=== PATIENT | female | born 1970 | race Caucasian/White ===

== ENCOUNTER 2016-04-16 20:24 | Emergency (ER) | payer OTHER ==
[~2016-04-16] VITALS: Ht 167.6 cm; Wt 90.7 kg
[~2016-04-16 20:24] MED LIST: ACID CONTROL150 MG PO; ADVAIR 250/501 DISK IH; ADVAIR 500/501 DISK IH; ADVAIR HFA120 INHALA IH; ADVIL,NUPRIN,M200 MG PO; AFRIN,GENASAL D15 ML BOTH NARES; ALBUTEROL2.5 MG/3 M IH; ALLERGY10 M1 PO; AMITIZA8 MICROGRA PO; ANTIVERT25 MG PO; ATIVAN0.5 M1 GT; AYGESTIN5 MG PO; AZITHROMYCIN250 MG1 PO; B12 5,000 MCG1 EACH; BACLOFEN10 MG PO; BACTRIM,SEPT1 TABLET; BACTRIM,SEPT1 TABLET PO; BENADRYL25 MG PO; BENTYL20 MG PO; BENZONATATE200 MG PO; BUDEPRION XL150 MG PO; BUDEPRION XL300 MG; CARAFATE1 GM PO; CELEXA40 MG PO; CETIRIZINE HCL10 M2 PO; CIPRO500 MG PO; CITRATE OF MAG296 ML PO; CLONIDINE HCL0.1 MG PO; COLACE100 MG PO; DESYREL100 MG PO; DESYREL300 MG PO; DIAZEPAM5 MG VG; DICYCLOMINE HCL20 MG PO; DILAUDID2 MG PO; DILAUDID4 MG PO; DOCUSATE CALCI240 MG PO; DOLOPHINE HCL10 MG PO; DOXAZOSIN MESYLA8 MG PO; DOXYCYCLINE HYC50 MG PO; DURAGESIC100 MCG TD; DURAGESIC12 MCG TD; DURAGESIC25 MCG TD; ELMIRON100 MG PO; ERGOCALCIF50000 UNIT PO; ERYTHROMYCIN-23.6 GM TP; ESKALITH300 M1 PO; ESZOPICLONE3 MG PO; EXCEDRIN MIGRA1 EAC3 PO; EXTRA STRENGTH500 M1 PO; Effexor XR PO; FENTANYL1 EAC1 TD; FENTANYL1 EAC4 TD; FENTANYL1 EAC5 TD; FEOSOL325 MG PO; FIORICET 50-301 EACH PO; FIORICET,ESG1 TABLET PO; FLAGYL500 MG PO; FLONASE16 G1 BOTH NARES; FLORINEF ACETA0.1 MG PO; GABAPENTIN300 MG PO; GABAPENTIN400 MG PO; GAS-X ULTRA ST180 MG PO; GEODON80 MG PO; GLIMEPIRIDE1 MG PO; HYDROXYZINE HCL50 M1; HYDROXYZINE HCL50 MG PO; IBUPROFEN200 M1 PO; IBUPROFEN800 MG PO; KENALOG,ARISTOC80 GM TP; KLONOPIN0.5 M1 PO; LAMICTAL XR300 MG PO; LAMICTAL150 M1 PO; LAMICTAL25 MG PO; LAMOTRIGINE200 MG PO; LATUDA40 MG PO; LATUDA80 MG PO; LEVAQUIN500 MG PO; LEVAQUIN750 MG PO; LEVOFLOXACIN500 MG PO; LEVOFLOXACIN750 MG PO; LEVOTHROID50 MCG PO; LEVOTHYROXINE75 MCG PO; LINZESS145 MCG PO; LITHIUM CARBON300 MG PO; LORTAB 5-325 M1 EACH PO; LYRICA100 MG PO; LYRICA25 MG PO; MAALOX ADVANCE355 ML PO; MACRODANTIN100 MG PO; MAGNESIUM CITR100 MG PO; MEDROL DOSEPAK4 MG PO; MELATONIN10 M1 PO; MELATONIN3 MG PO; MELOXICAM7.5 MG PO; METAMUCIL CAPSU1 CAP PO; METFORMIN HCL500 M1 PO; METFORMIN HCL500 M4 PO; METRONIDAZOLE500 MG PO; MIRALAX17 GM PO; MOTRIN600 MG PO; MOTRIN800 MG PO; MUCUS RELIEF600 MG PO; MULTI-DAY VITA1 EACH PO; NAPROSYN500 MG PO; NAPROXEN500 MG PO; NORETHINDRONE AC5 MG PO; OMEGA 3-6-91200 MG PO; ONDANSETRON HCL8 MG PO; OXYBUTYNIN CHLOR5 M1 PO; PANTOPRAZOLE SO40 MG PO; PEN-VEE K,VEET500 MG PO; PERCOCET 5/31 TABLET PO; PERCOCET 7.51 TABLET PO; PHENTERMINE HCL30 MG PO; POLYETHYLENE GL17 GM PO; PRAVACHOL10 MG; PRAVACHOL10 MG PO; PRAVASTATIN SOD20 MG PO; PREMARIN0.3 MG PO; PRILOSEC40 MG PO; PROAIR HFA8.5 GM IH; PROTONIX40 MG PO; PYRIDIUM200 MG PO; RANITIDINE HCL150 MG PO; RESTORIL; ROBITUSSIN AC,T10 ML PO; ROXICODONE5 MG PO; SENNA8.6 M1 PO; SENOKOT,SENN1 TABLET PO; SOMA250 MG PO; SPIRIVA1 INHALATI IH; SUCRALFATE1 GM PO; Soma PO; TAMAZEPAM PO; TIZANIDINE HCL4 M1 PO; TIZANIDINE HCL4 MG PO; TOPAMAX100 MG PO; TOPAMAX25 MG PO; TORADOL10 MG PO; TRAMADOL HCL50 MG PO; TRAZODONE HCL150 MG PO; TRAZODONE HCL300 MG PO; TRIAMCINOLONE A15 GM TP; TYLENOL PM EX-1 EACH; TYLENOL WITH C1 EACH PO; ULTRAM50 MG PO; VALIUM5 MG PO; VENLAFAXINE H37.5 M2 PO; VENTOLIN HFA18 GM IH; VICODIN,LORT1 TABLET PO; VIIBRYD40 MG PO; VITAMIN D400 UNIT PO; WELLBUTRIN XL150 MG PO; ZANAFLEX2 M1 PO; ZANAFLEX2 MG PO; ZANAFLEX4 M1 PO; ZANTAC150 MG PO; ZANTAC75 M1 PO; ZITHROMAX Z-PA250 MG PO; ZOFRAN ODT4 MG PO; ZOFRAN4 MG PO; ZOFRAN8 MG PO; [UNRECOGNIZED DRUG - OTHER]; celeXA PO
[2016-04-16 20:49] LABS: HEMATOCRIT 38.1 % (36.0-46.0); MCH 31.8 PG (29.0-34.0); MCHC 34.4 G/DL (30.0-36.0); MCV 92.5 FL (83-99); MEAN PLAT.VOLUME 9.5 uM^3 (9.5-12.4); PLATELET COUNT 266 K/uL (156-360); RBC DIS.WIDTH-SD 42.7 % (39-53); RED BLOOD COUNT 4.12 M/uL (3.80-5.20); WHITE BLOOD COUNT 8.1 K/uL (4.1-10.2)
[2016-04-16 20:57] LABS: CHLORIDE 104 mEq/L (99-109); POTASSIUM 3.8 mEq/L (3.7-5.4); SODIUM 137 mEq/L (136-147)
[2016-04-16 20:58] LABS: ADD MIUA? YES; BILIRUBIN NEGATIVE; BLOOD NEGATIVE; COLOR YELLOW ((YELLOW)); GLUCOSE (STRIP) >=1000; KETONES NEGATIVE; LEUKOCYTES NEGATIVE; NITRITE NEGATIVE; PROTEIN (STRIP) NEGATIVE; UROBILINOGEN 0.2 MG/DL (0.2-1.0)
[2016-04-16 20:59] LABS: GLUCOSE 281 mg/dL (70-99)
[2016-04-16 21:00] LABS: ANION GAP 10 MEQ/L (2-14)
[2016-04-16 21:01] LABS: TOTAL BILIRUBIN 0.6 mg/dL (0.0-1.0)
[2016-04-16 21:02] LABS: ALKALINE PHOSPHATASE 80 IU/L (3-129)
[2016-04-16 21:03] LABS: GFR ESTIMATE (CALCULATED) > 59 mL/min/
[2016-04-16 21:04] LABS: UREA NITROGEN (BUN) 8 mg/dL (9-23)
[2016-04-16 21:11] LABS: QUANTITATIVE HCG < 4.0 MIU/ML
[2016-04-16 21:29] LABS: BACTERIA 2+; CASTS NONE SEEN /LPF; CRYSTALS NONE SEEN; EPITHELIAL CELLS 1+; MUCUS NONE SEEN; RED BLOOD CELLS 0-5 /HPF (0-5); UCUL ADDED? YES; WHITE BLOOD CELLS 15-20 /HPF (0-5)
[2016-04-16] MEDS ORDERED: MACROBID100 MG PO (22:22)
[2016-04-16 22:52] VITALS: BP 146/99
== END 2016-04-16 22:56 | disposition home or self-care (01) ==
LOC: EME 20:24
DX: N39.0 Urinary tract infection, site not specified (principal); R51 Headache; E11.9 Type 2 diabetes mellitus without complications; J44.9 Chronic obstructive pulmonary disease, unspecified; G89.29 Other chronic pain; Z79.891 Long term (current) use of opiate analgesic; F17.200 Nicotine dependence, unspecified, uncomplicated
CPT/HCPCS: 80053; 81003; 84702; 85027; 87077; 87086; 87186; 99281; 99284

== ENCOUNTER 2016-04-27 18:34 | Emergency (ER) | payer OTHER ==
[~2016-04-27] VITALS: Ht 167.6 cm; Wt 89.4 kg
[~2016-04-27 18:34] MED LIST changes: +MACROBID100 MG PO
[2016-04-27 19:09] LABS: HEMATOCRIT 38.8 % (36.0-46.0); MCH 31.1 PG (29.0-34.0); MCV 91.3 FL (83-99); MEAN PLAT.VOLUME 9.5 uM^3 (9.5-12.4); PLATELET COUNT 279 K/uL (156-360); RBC DIS.WIDTH-CV 13.2 % (11.8-14.6); RBC DIS.WIDTH-SD 42.7 % (39-53); RED BLOOD COUNT 4.25 M/uL (3.80-5.20); WHITE BLOOD COUNT 8.4 K/uL (4.1-10.2)
[2016-04-27 19:32] LABS: CHLORIDE 109 mEq/L (99-109); POTASSIUM 3.7 mEq/L (3.7-5.4); SODIUM 141 mEq/L (136-147)
[2016-04-27 19:34] LABS: GLUCOSE 193 mg/dL (70-99)
[2016-04-27 19:35] LABS: ANION GAP 10 MEQ/L (2-14)
[2016-04-27 19:36] LABS: TOTAL BILIRUBIN 0.3 mg/dL (0.0-1.0)
[2016-04-27 19:37] LABS: ALKALINE PHOSPHATASE 79 IU/L (3-129)
[2016-04-27 19:38] LABS: GFR ESTIMATE (CALCULATED) > 59 mL/min/
[2016-04-27 19:39] LABS: UREA NITROGEN (BUN) 9 mg/dL (9-23)
[2016-04-27 19:46] LABS: QUANTITATIVE HCG < 4.0 MIU/ML
[2016-04-27] MEDS ORDERED: DICYCLOMINE HCL20 MG PO (20:23)
[2016-04-27] MEDS ORDERED: AMITIZA8 MICROGRA PO (20:23)
[2016-04-27] MEDS ORDERED: VITAMIN B-1100 MG PO (20:25)
[2016-04-27] MEDS ORDERED: RANITIDINE HCL150 MG PO (20:25)
[2016-04-27 20:28] LABS: ADD MIUA? YES; BILIRUBIN NEGATIVE; BLOOD NEGATIVE; COLOR YELLOW ((YELLOW)); GLUCOSE (STRIP) 100; KETONES NEGATIVE; LEUKOCYTES SMALL; NITRITE NEGATIVE; PROTEIN (STRIP) NEGATIVE; SPECIFIC GRAVITY 1.021 (1.000-1.030); UROBILINOGEN 0.2 MG/DL (0.2-1.0)
[2016-04-27 20:58] LABS: AMORPHOUS PHOSPHATE CRYSTALS 4+; BACTERIA 1+ /HPF; CASTS NONE SEEN /LPF; CRYSTALS PRESENT; EPITHELIAL CELLS 2+ /HPF; MUCUS NONE SEEN /LPF; RED BLOOD CELLS NONE SEEN /HPF (0-5); UCUL ADDED? NO; WHITE BLOOD CELLS RARE /HPF (0-5)
[2016-04-27] MEDS ORDERED: FLAGYL500 MG PO (21:58)
[2016-04-27 22:13] VITALS: BP 145/82
== END 2016-04-27 22:13 | disposition home or self-care (01) ==
LOC: EME 18:34
PROVIDERS: Physician Assistant
DX: K52.9 Noninfective gastroenteritis and colitis, unspecified (principal); R10.32 Left lower quadrant pain; I10 Essential (primary) hypertension; E11.9 Type 2 diabetes mellitus without complications; J44.9 Chronic obstructive pulmonary disease, unspecified; M79.7 Fibromyalgia; K21.9 Gastro-esophageal reflux disease without esophagitis; E03.9 Hypothyroidism, unspecified; Z79.84 Long term (current) use of oral hypoglycemic drugs; F17.200 Nicotine dependence, unspecified, uncomplicated
CPT/HCPCS: 74177; 80053; 81003; 84702; 85027; 99281; 99284; J1885; J2270; J2405; J7030

== ENCOUNTER 2016-05-06 21:53 | Emergency (ER) | payer OTHER ==
[~2016-05-06] VITALS: Ht 167.6 cm; Wt 88.6 kg
[~2016-05-06 21:53] MED LIST changes: +VITAMIN B-1100 MG PO
[2016-05-06 22:58] LABS: HEMATOCRIT 41.6 % (36.0-46.0); MCH 30.6 PG (29.0-34.0); MCHC 33.7 G/DL (30.0-36.0); MCV 90.8 FL (83-99); MEAN PLAT.VOLUME 9.3 uM^3 (9.5-12.4); PLATELET COUNT 308 K/uL (156-360); RBC DIS.WIDTH-CV 13.1 % (11.8-14.6); RBC DIS.WIDTH-SD 42.7 % (39-53); RED BLOOD COUNT 4.58 M/uL (3.80-5.20); WHITE BLOOD COUNT 7.8 K/uL (4.1-10.2)
[2016-05-06 23:08] LABS: CHLORIDE 105 mEq/L (99-109); POTASSIUM 3.7 mEq/L (3.7-5.4); SODIUM 140 mEq/L (136-147)
[2016-05-06 23:10] LABS: GLUCOSE 146 mg/dL (70-99)
[2016-05-06 23:11] LABS: ANION GAP 13 MEQ/L (2-14)
[2016-05-06 23:12] LABS: TOTAL BILIRUBIN 0.5 mg/dL (0.0-1.0)
[2016-05-06 23:14] LABS: ALKALINE PHOSPHATASE 88 IU/L (3-129); GFR ESTIMATE (CALCULATED) > 59 mL/min/
[2016-05-06 23:15] LABS: UREA NITROGEN (BUN) 6 mg/dL (9-23)
[2016-05-06 23:26] LABS: QUANTITATIVE HCG < 4.0 MIU/ML
[2016-05-06 23:41] LABS: ADD MIUA? YES; BILIRUBIN NEGATIVE; BLOOD NEGATIVE; COLOR STRAW ((YELLOW)); GLUCOSE (STRIP) NEGATIVE; KETONES NEGATIVE; LEUKOCYTES TRACE; NITRITE NEGATIVE; PROTEIN (STRIP) NEGATIVE; SPECIFIC GRAVITY 1.006 (1.000-1.030); UROBILINOGEN 0.2 MG/DL (0.2-1.0)
[2016-05-06 23:50] LABS: BACTERIA RARE /HPF; EPITHELIAL CELLS 1+ /HPF; MUCUS NONE SEEN /LPF; RED BLOOD CELLS 0-5 /HPF (0-5); UCUL ADDED? NO; WHITE BLOOD CELLS 0-5 /HPF (0-5)
[2016-05-07] MEDS ORDERED: ZOFRAN4 MG PO (04:41)
[2016-05-07 05:43] VITALS: BP 147/92
== END 2016-05-07 05:44 | disposition home or self-care (01) ==
LOC: EME 21:53
DX: R10.32 Left lower quadrant pain (principal); R11.0 Nausea; R10.813 Right lower quadrant abdominal tenderness; R10.814 Left lower quadrant abdominal tenderness; G89.29 Other chronic pain; R79.89 Other specified abnormal findings of blood chemistry; E11.9 Type 2 diabetes mellitus without complications; E03.9 Hypothyroidism, unspecified; J44.9 Chronic obstructive pulmonary disease, unspecified; F17.200 Nicotine dependence, unspecified, uncomplicated
CPT/HCPCS: 74177; 80053; 81003; 84702; 85027; 87040; 99281; 99285; J1200; J2270; J2405; J7030

== ENCOUNTER 2016-05-16 06:32 | Day surgery (SDC) | payer OTHER ==
[~2016-05-16] VITALS: Ht 167.6 cm; Wt 89.0 kg
[~2016-05-16 06:32] MED LIST changes: +LUNESTA3 MG PO; +LYRICA150 MG PO; +MINIPRESS1 MG PO
[2016-05-16 07:12] VITALS: BP 93/55
[2016-05-16 07:53] LABS: POINT-OF-CARE METER ID UU14174212
[2016-05-16 09:50] VITALS: BP 100/60
[2016-05-16 10:33] VITALS: BP 106/66
== END 2016-05-16 10:36 | disposition home or self-care (01) ==
LOC: SDC 06:32
PROVIDERS: Obstetrics & Gynecology Gynecology
PROC: 0U5MXZZ Destruction of Vulva, External Approach (ICD-10-PCS; principal; 2016-05-16)
DX: A63.0 Anogenital (venereal) warts (principal); E11.9 Type 2 diabetes mellitus without complications; K21.9 Gastro-esophageal reflux disease without esophagitis; J44.9 Chronic obstructive pulmonary disease, unspecified; E03.9 Hypothyroidism, unspecified; M79.7 Fibromyalgia; M54.16 Radiculopathy, lumbar region
CPT/HCPCS: 82948; 88305; 93005; J0131; J0690; J1100; J1885; J2250; J2405; J3010

== ENCOUNTER 2016-05-31 15:26 | Emergency (ER) | payer OTHER ==
[~2016-05-31] VITALS: Ht 167.6 cm; Wt 87.4 kg
[2016-05-31 17:30] LABS: EOSINOPHIL (%) 0.7 % (0-5); EOSINOPHIL COUNT 0.1 K/uL (0-0.3); HEMATOCRIT 37.8 % (36.0-46.0); IMMATURE GRANULOCYTE (%) 0.4 % (0.0-0.7); LYMPHOCYTE COUNT 2.6 K/uL (1.0-2.8); MCH 30.7 PG (29.0-34.0); MCHC 33.6 G/DL (30.0-36.0); MCV 91.3 FL (83-99); MEAN PLAT.VOLUME 9.2 uM^3 (9.5-12.4); MONOCYTE (%) 6.2 % (3-12); MONOCYTE COUNT 0.5 K/uL (0-0.8); NEUTROPHIL (%) 60.8 % (45-76); PLATELET COUNT 239 K/uL (156-360); RBC DIS.WIDTH-CV 13.2 % (11.8-14.6); RBC DIS.WIDTH-SD 44.2 % (39-53); RED BLOOD COUNT 4.14 M/uL (3.80-5.20); WHITE BLOOD COUNT 8.2 K/uL (4.1-10.2)
[2016-05-31 17:43] LABS: CHLORIDE 109 mEq/L (99-109); SODIUM 140 mEq/L (136-147)
[2016-05-31 17:46] LABS: GLUCOSE 119 mg/dL (70-99)
[2016-05-31 17:47] LABS: ADD MIUA? YES; BILIRUBIN NEGATIVE; BLOOD NEGATIVE; COLOR YELLOW ((YELLOW)); GLUCOSE (STRIP) NEGATIVE; KETONES NEGATIVE; LEUKOCYTES NEGATIVE; NITRITE NEGATIVE; PROTEIN (STRIP) NEGATIVE; UROBILINOGEN 0.2 MG/DL (0.2-1.0)
[2016-05-31 17:47] LABS: ANION GAP 11 MEQ/L (2-14); TOTAL BILIRUBIN 0.7 mg/dL (0.0-1.0)
[2016-05-31 17:49] LABS: ALKALINE PHOSPHATASE 67 IU/L (3-129); GFR ESTIMATE (CALCULATED) > 59 mL/min/
[2016-05-31 17:50] LABS: UREA NITROGEN (BUN) 9 mg/dL (9-23)
[2016-05-31 17:53] LABS: LIPASE 27 U/L (1.0-51.0)
[2016-05-31 17:53] LABS: BACTERIA RARE /HPF; EPITHELIAL CELLS 1+ /HPF; MUCUS TRACE /LPF; RED BLOOD CELLS 0-5 /HPF (0-5); WHITE BLOOD CELLS 0-5 /HPF (0-5)
[2016-05-31 17:59] LABS: QUANTITATIVE HCG < 4.0 MIU/ML
[2016-05-31 18:01] LABS: SAMPLE HEMOLYSIS CHECK 0; SAMPLE ICTERIC CHECK 0; SAMPLE LIPEMIA CHECK 0
[2016-05-31] MEDS ORDERED: ZOFRAN ODT4 MG PO (19:04)
[2016-05-31 19:14] VITALS: BP 142/87
== END 2016-05-31 19:14 | disposition home or self-care (01) ==
LOC: EME 15:26
PROVIDERS: Physician Assistant
DX: R10.32 Left lower quadrant pain (principal); G89.29 Other chronic pain; R11.0 Nausea; E11.9 Type 2 diabetes mellitus without complications; K21.9 Gastro-esophageal reflux disease without esophagitis; E03.9 Hypothyroidism, unspecified; Z79.84 Long term (current) use of oral hypoglycemic drugs; F17.200 Nicotine dependence, unspecified, uncomplicated
CPT/HCPCS: 74177; 80053; 81003; 83605; 83690; 84702; 85025; 86141; 99281; 99285; J1885; J2405; J7030

== ENCOUNTER → 2016-06-03 | Outpatient (CLI) | payer OTHER ==
[~2016-06-03] VITALS: Ht 167.6 cm; Wt 88.6 kg
[2016-06-03 08:28] LABS: POINT-OF-CARE METER ID UU13113694
[2016-06-03 09:36] LABS: POINT-OF-CARE METER ID UU13113819
== END | disposition home or self-care (01) ==
LOC: AMB 07:47
PROVIDERS: Internal Medicine
PROC: 0DBN8ZX Excision of Sigmoid Colon, Via Natural or Artificial Opening Endoscopic, Diagnostic (ICD-10-PCS; principal; 2016-06-03)
DX: R10.32 Left lower quadrant pain (principal); K59.00 Constipation, unspecified; K57.90 Diverticulosis of intestine, part unspecified, without perforation or abscess without bleeding; D12.5 Benign neoplasm of sigmoid colon; R11.0 Nausea; E11.9 Type 2 diabetes mellitus without complications; J44.9 Chronic obstructive pulmonary disease, unspecified; F17.200 Nicotine dependence, unspecified, uncomplicated; M79.7 Fibromyalgia; Z88.8 Allergy status to other drugs, medicaments and biological substances
CPT/HCPCS: 82948; 88305; J2250; J2405; J3010

== ENCOUNTER 2016-07-11 08:15 | Observation (INO) | payer OTHER ==
[~2016-07-11] VITALS: Ht 167.6 cm; Wt 89.3 kg
[2016-07-11 08:55] LABS: HEMATOCRIT 37.2 % (36.0-46.0); MCH 30.8 PG (29.0-34.0); MCHC 33.6 G/DL (30.0-36.0); MCV 91.6 FL (83-99); MEAN PLAT.VOLUME 9.3 uM^3 (9.5-12.4); PLATELET COUNT 240 K/uL (156-360); RBC DIS.WIDTH-CV 13.5 % (11.8-14.6); RBC DIS.WIDTH-SD 45.6 % (39-53); RED BLOOD COUNT 4.06 M/uL (3.80-5.20); WHITE BLOOD COUNT 7.2 K/uL (4.1-10.2)
[2016-07-11 09:03] LABS: CHLORIDE 105 mEq/L (99-109); SODIUM 136 mEq/L (136-147)
[2016-07-11 09:05] LABS: GLUCOSE 138 mg/dL (70-99)
[2016-07-11 09:07] LABS: ANION GAP 12 MEQ/L (2-14); TOTAL BILIRUBIN 0.3 mg/dL (0.0-1.0)
[2016-07-11 09:09] LABS: ALKALINE PHOSPHATASE 67 IU/L (3-129); GFR ESTIMATE (CALCULATED) > 59 mL/min/
[2016-07-11 09:10] LABS: UREA NITROGEN (BUN) 11 mg/dL (9-23)
[2016-07-11 09:12] LABS: LIPASE 28 U/L (1.0-51.0)
[2016-07-11 09:21] LABS: ADD MIUA? YES; BILIRUBIN NEGATIVE; BLOOD NEGATIVE; COLOR STRAW ((YELLOW)); GLUCOSE (STRIP) NEGATIVE; KETONES NEGATIVE; LEUKOCYTES TRACE; NITRITE NEGATIVE; PROTEIN (STRIP) NEGATIVE; SPECIFIC GRAVITY 1.006 (1.000-1.030); UROBILINOGEN 0.2 MG/DL (0.2-1.0)
[2016-07-11 09:29] LABS: BACTERIA NONE SEEN /HPF; EPITHELIAL CELLS 1+ /HPF; MUCUS TRACE /LPF; RED BLOOD CELLS 0-5 /HPF (0-5); WHITE BLOOD CELLS 0-5 /HPF (0-5)
[2016-07-11] MEDS ORDERED: GLIMEPIRIDE2 MG PO (14:40)
[2016-07-11] MEDS ORDERED: HYOSCYAMINE0.125 M2 PO (14:43)
[2016-07-11] MEDS ORDERED: ADVAIR HFA120 INHALA IH (14:43)
[2016-07-11 16:36] LABS: POINT-OF-CARE METER ID UU14100415
[2016-07-11 16:51] VITALS: BP 151/93
[2016-07-11 19:00] VITALS: BP 114/66
[2016-07-11 23:52] VITALS: BP 146/66
[2016-07-12 04:14] VITALS: BP 96/64
[2016-07-12 08:10] VITALS: BP 109/60
[2016-07-12 08:24] LABS: POINT-OF-CARE METER ID UU13113831
[2016-07-12 11:53] VITALS: BP 130/79
[2016-07-12 12:35] LABS: POINT-OF-CARE METER ID UU13113700
== END 2016-07-12 14:04 | disposition home or self-care (01) ==
LOC: EME 08:15 → EDOF 13:08 → 5WEST 13:08
PROVIDERS: Hospitalist; Nurse Practitioner Family
DX: R10.32 Left lower quadrant pain (principal); K21.9 Gastro-esophageal reflux disease without esophagitis; G89.29 Other chronic pain; M54.2 Cervicalgia; E11.9 Type 2 diabetes mellitus without complications; E03.9 Hypothyroidism, unspecified; M79.7 Fibromyalgia; E66.9 Obesity, unspecified; Z68.31 Body mass index [BMI] 31.0-31.9, adult; K59.00 Constipation, unspecified
CPT/HCPCS: 74000; 74177; 80053; 81003; 82948; 83605; 83690; 85027; 87040; 94640; 99202; 99281; 99284; G0378; J2405; J3010; J7030

== ENCOUNTER 2016-10-27 15:30 | Emergency (ER) | payer OTHER ==
[~2016-10-27] VITALS: Ht 167.6 cm; Wt 86.6 kg
[~2016-10-27 15:30] MED LIST changes: +GLIMEPIRIDE2 MG PO; +HYOSCYAMINE0.125 M2 PO
[2016-10-27 15:59] LABS: HEMATOCRIT 36.7 % (36.0-46.0); MCH 29.9 PG (29.0-34.0); MCHC 34.1 G/DL (30.0-36.0); MCV 87.8 FL (83-99); MEAN PLAT.VOLUME 9.1 uM^3 (9.5-12.4); PLATELET COUNT 277 K/uL (156-360); RBC DIS.WIDTH-CV 13.4 % (11.8-14.6); RBC DIS.WIDTH-SD 43.1 % (39-53); RED BLOOD COUNT 4.18 M/uL (3.80-5.20)
[2016-10-27 16:07] LABS: CHLORIDE 94 mEq/L (99-109); POTASSIUM 3.3 mEq/L (3.7-5.4); SODIUM 134 mEq/L (136-147)
[2016-10-27 16:09] LABS: GLUCOSE 149 mg/dL (70-99)
[2016-10-27 16:10] LABS: ANION GAP 13 MEQ/L (2-14)
[2016-10-27 16:11] LABS: TOTAL BILIRUBIN 0.5 mg/dL (0.0-1.0)
[2016-10-27 16:12] LABS: ALKALINE PHOSPHATASE 102 IU/L (3-129)
[2016-10-27 16:13] LABS: GFR ESTIMATE (CALCULATED) 57 mL/min/
[2016-10-27 16:14] LABS: UREA NITROGEN (BUN) 10 mg/dL (9-23)
[2016-10-27 16:21] LABS: QUANTITATIVE HCG < 4.0 MIU/ML
[2016-10-27 17:14] LABS: COLOR YELLOW ((YELLOW)); LEUKOCYTES SMALL
[2016-10-27 17:15] LABS: ADD MIUA? YES; BILIRUBIN NEGATIVE; BLOOD NEGATIVE; GLUCOSE (STRIP) NEGATIVE; KETONES NEGATIVE; NITRITE POSITIVE; PROTEIN (STRIP) TRACE; UROBILINOGEN 0.2 MG/DL (0.2-1.0)
[2016-10-27 17:24] LABS: RED BLOOD CELLS 0-5 /HPF (0-5)
[2016-10-27 17:25] LABS: BACTERIA 3+ /HPF; EPITHELIAL CELLS 3+ /HPF; MUCUS RARE /LPF; UCUL ADDED? YES
[2016-10-27] MEDS ORDERED: BACTRIM,SEPT1 TABLET PO (17:40)
[2016-10-27 18:56] VITALS: BP 138/70
== END 2016-10-27 18:57 | disposition home or self-care (01) ==
LOC: EME 15:30
DX: N39.0 Urinary tract infection, site not specified (principal); E11.9 Type 2 diabetes mellitus without complications; M79.7 Fibromyalgia; K21.9 Gastro-esophageal reflux disease without esophagitis; E03.9 Hypothyroidism, unspecified; K58.9 Irritable bowel syndrome, unspecified; Z87.440 Personal history of urinary (tract) infections; Z87.891 Personal history of nicotine dependence; Z79.84 Long term (current) use of oral hypoglycemic drugs
CPT/HCPCS: 80053; 81003; 84702; 85027; 87077; 87086; 87186; 99281; 99284

== ENCOUNTER 2017-05-05 01:48 | Emergency (ER) | payer OTHER ==
[~2017-05-05] VITALS: Ht 167.6 cm; Wt 85.2 kg
[2017-05-05 02:23] LABS: HEMATOCRIT 36.9 % (36.0-46.0); HEMOGLOBIN 12.4 G/DL (11.9-15.5); MCH 30.3 PG (29.0-34.0); MCHC 33.6 G/DL (30.0-36.0); MCV 90.2 FL (83-99); PLATELET COUNT 376 K/uL (156-360); RBC DIS.WIDTH-CV 13.8 % (11.8-14.6); RBC DIS.WIDTH-SD 45.5 % (39-53); RED BLOOD COUNT 4.09 M/uL (3.80-5.20); WHITE BLOOD COUNT 11.1 K/uL (4.1-10.2)
[2017-05-05 02:32] LABS: APPEARANCE SL.HAZY ((CLEAR)); BILIRUBIN NEGATIVE; BLOOD NEGATIVE; COLOR YELLOW ((YELLOW)); GLUCOSE (STRIP) 50; KETONES NEGATIVE; LEUKOCYTES SMALL; NITRITE NEGATIVE; PROTEIN (STRIP) 30; SPECIFIC GRAVITY 1.011 (1.000-1.030); UROBILINOGEN 0.2 MG/DL (0.2-1.0)
[2017-05-05 02:34] LABS: ALBUMIN 4.2 g/dL (3.2-4.8)
[2017-05-05 02:35] LABS: CHLORIDE 100 mEq/L (99-109); SODIUM 139 mEq/L (136-147)
[2017-05-05 02:37] LABS: GLUCOSE 179 mg/dL (70-99); TOTAL PROTEIN 8.4 g/dL (6.4-8.3)
[2017-05-05 02:38] LABS: BACTERIA 2+ /HPF; EPITHELIAL CELLS 2+ /HPF; MUCUS TRACE /LPF; RED BLOOD CELLS 0-5 /HPF (0-5); UCUL ADDED? YES; WHITE BLOOD CELLS 0-5 /HPF (0-5)
[2017-05-05 02:39] LABS: TOTAL BILIRUBIN 0.8 mg/dL (0.0-1.0)
[2017-05-05 02:41] LABS: ALKALINE PHOSPHATASE 78 IU/L (3-129); CREATININE 0.9 mg/dL (0.6-1.3); GFR ESTIMATE (CALCULATED) > 59 mL/min/
[2017-05-05 02:42] LABS: AST (GOT) 27 IU/L (2-34); UREA NITROGEN (BUN) 7 mg/dL (9-23)
[2017-05-05 02:44] LABS: ALT (GPT) 14 IU/L (3-49); LIPASE 13 U/L (1.0-51.0)
[2017-05-05 02:50] LABS: QUANTITATIVE HCG < 4.0 MIU/ML
[2017-05-05] MEDS ORDERED: REGLAN10 MG PO (05:06)
[2017-05-05 05:35] VITALS: BP 143/90
== END 2017-05-05 05:36 | disposition home or self-care (01) ==
LOC: EME 01:48
DX: K91.872 Postprocedural seroma of a digestive system organ or structure following a digestive system procedure (principal); R11.2 Nausea with vomiting, unspecified; K21.9 Gastro-esophageal reflux disease without esophagitis; E11.9 Type 2 diabetes mellitus without complications; E03.9 Hypothyroidism, unspecified; K58.9 Irritable bowel syndrome, unspecified; G89.29 Other chronic pain; Z79.84 Long term (current) use of oral hypoglycemic drugs; Z87.891 Personal history of nicotine dependence; Z98.890 Other specified postprocedural states; Z87.19 Personal history of other diseases of the digestive system; Z90.49 Acquired absence of other specified parts of digestive tract; Z90.711 Acquired absence of uterus with remaining cervical stump; Z88.6 Allergy status to analgesic agent; Z88.8 Allergy status to other drugs, medicaments and biological substances
CPT/HCPCS: 74177; 80053; 81003; 83690; 84702; 85027; 87086; 99281; 99285; J1200; J2270; J2405; J2765; J3010; J7030

== ENCOUNTER 2017-05-12 18:05 | Observation (INO) | payer OTHER ==
[~2017-05-12] VITALS: Ht 167.6 cm; Wt 81.8 kg
[~2017-05-12 18:05] MED LIST changes: +REGLAN10 MG PO
[2017-05-12 19:44] LABS: HEMATOCRIT 37.2 % (36.0-46.0); HEMOGLOBIN 12.5 G/DL (11.9-15.5); MCH 30.3 PG (29.0-34.0); MCHC 33.6 G/DL (30.0-36.0); MCV 90.1 FL (83-99); PLATELET COUNT 342 K/uL (156-360); RBC DIS.WIDTH-CV 13.8 % (11.8-14.6); RBC DIS.WIDTH-SD 45.7 % (39-53); RED BLOOD COUNT 4.13 M/uL (3.80-5.20); WHITE BLOOD COUNT 8.4 K/uL (4.1-10.2)
[2017-05-12 19:56] LABS: ALBUMIN 4.3 G/DL (3.2-4.8); CHLORIDE 102 MEQ/L (99-109); POTASSIUM 4.2 MEQ/L (3.7-5.4); SODIUM 138 MEQ/L (136-147); TOTAL BILIRUBIN 0.6 MG/DL (0.0-1.0)
[2017-05-12 20:02] LABS: ALKALINE PHOSPHATASE 67 IU/L (3-129); ALT (GPT) 18 IU/L (3-49); AST (GOT) 40 IU/L (2-34); CREATININE 0.8 MG/DL (0.6-1.3); GFR ESTIMATE (CALCULATED) > 59 mL/min/; GLUCOSE 209 mg/dL (70-99); LIPASE 15 U/L (1.0-51.0); TOTAL PROTEIN 8.2 G/DL (6.4-8.3); UREA NITROGEN (BUN) 8 mg/dL (9-23)
[2017-05-12 20:04] LABS: QUANTITATIVE HCG < 4.0 MIU/ML
[2017-05-12] MEDS ORDERED: PHENERGAN25 MG PR (21:37)
[2017-05-13 01:17] LABS: SERUM ETHYL ALCOHOL < 10 mg/dL
[2017-05-13 01:50] VITALS: BP 162/76
[2017-05-13 09:57] VITALS: BP 125/79
[2017-05-13] MEDS ORDERED: MINIPRESS2 MG PO (10:31)
[2017-05-13] MEDS ORDERED: MINIPRESS5 MG PO (10:31)
[2017-05-13] MEDS ORDERED: LAMICTAL200 MG PO (10:31)
[2017-05-13] MEDS ORDERED: BUSPAR30 MG PO (10:31)
[2017-05-13] MEDS ORDERED: SYNTHROID75 MCG PO (10:32)
[2017-05-13] MEDS ORDERED: LUNESTA3 MG PO (10:32)
[2017-05-13] MEDS ORDERED: LATUDA60 MG PO (10:32)
[2017-05-13] MEDS ORDERED: PROVENTIL,2.5 MG/3 M IH (10:32)
[2017-05-13] MEDS ORDERED: [UNRECOGNIZED DRUG - OTHER] TP (10:33)
[2017-05-13] MEDS ORDERED: DITROPAN XL5 MG PO (10:33)
[2017-05-13] MEDS ORDERED: ZOFRAN ODT4 MG PO (10:33)
[2017-05-13] MEDS ORDERED: TIZANIDINE HCL4 MG PO (10:33)
[2017-05-13] MEDS ORDERED: BACLOFEN10 MG PO (10:33)
[2017-05-13] MEDS ORDERED: LOPROX 0.77% TP (10:33)
[2017-05-13] MEDS ORDERED: METFORMIN HCL500 M1 PO (10:34)
[2017-05-13] MEDS ORDERED: ZYRTEC10 M3 PO (10:34)
[2017-05-13] MEDS ORDERED: BUTRANS1 EAC1 TD (10:34)
[2017-05-13] MEDS ORDERED: VENTOLIN HFA18 GM IH (10:34)
[2017-05-13] MEDS ORDERED: NEXIUM 24HR20 M1 PO (10:34)
[2017-05-13] MEDS ORDERED: KENALOG,ARISTOC15 G1 TP (10:35)
[2017-05-13] MEDS ORDERED: AMARYL2 MG PO (10:35)
[2017-05-13 11:45] VITALS: BP 144/85
[2017-05-13 12:57] VITALS: BP 144/95
[2017-05-13] MEDS ORDERED: BENTYL10 MG PO (16:58)
== END 2017-05-13 18:19 | disposition home or self-care (01) ==
LOC: EME 18:05 → EDOF 05-13 00:13 → ENRESERV 05-13 00:17 → 5WEST 05-13 01:51
PROVIDERS: Hospitalist; Physician Assistant
DX: R11.2 Nausea with vomiting, unspecified (principal); G89.29 Other chronic pain; R10.32 Left lower quadrant pain; Z98.890 Other specified postprocedural states; F60.3 Borderline personality disorder; M79.7 Fibromyalgia; J44.9 Chronic obstructive pulmonary disease, unspecified; Z87.891 Personal history of nicotine dependence; Z86.010 Personal history of colon polyps; E11.65 Type 2 diabetes mellitus with hyperglycemia; E03.9 Hypothyroidism, unspecified; I10 Essential (primary) hypertension; E78.5 Hyperlipidemia, unspecified; K58.9 Irritable bowel syndrome, unspecified; G47.33 Obstructive sleep apnea (adult) (pediatric); Z90.49 Acquired absence of other specified parts of digestive tract; Z87.19 Personal history of other diseases of the digestive system; Z90.710 Acquired absence of both cervix and uterus; Z88.1 Allergy status to other antibiotic agents; Z88.8 Allergy status to other drugs, medicaments and biological substances; E66.01 Morbid (severe) obesity due to excess calories; Z68.29 Body mass index [BMI] 29.0-29.9, adult; Z79.84 Long term (current) use of oral hypoglycemic drugs
CPT/HCPCS: 74018; 74176; 80053; 80306 90; 81003; 82948; 83605; 83690; 84702; 85027; 99281; 99285; C9113; G0378; G0480; J1630; J1644; J1885; J2060; J2405; J2765; J3010; J7030

== ENCOUNTER 2017-05-14 23:01 | Inpatient (IN) | payer OTHER ==
[~2017-05-14] VITALS: Ht 167.6 cm; Wt 82.6 kg
[~2017-05-14 23:01] MED LIST changes: +AMARYL2 MG PO; +BENTYL10 MG PO; +BUSPAR30 MG PO; +BUTRANS1 EAC1 TD; +DITROPAN XL5 MG PO; +KENALOG,ARISTOC15 G1 TP; +LAMICTAL200 MG PO; +LATUDA60 MG PO; +LOPROX 0.77% TP; +MINIPRESS2 MG PO; +MINIPRESS5 MG PO; +NEXIUM 24HR20 M1 PO; +PHENERGAN25 MG PR; +PROVENTIL,2.5 MG/3 M IH; +SYNTHROID75 MCG PO; +ZYRTEC10 M3 PO; +[UNRECOGNIZED DRUG - OTHER] TP
[2017-05-14 23:28] LABS: HEMATOCRIT 36.8 % (36.0-46.0); HEMOGLOBIN 12.3 G/DL (11.9-15.5); MCH 30.2 PG (29.0-34.0); MCHC 33.4 G/DL (30.0-36.0); MCV 90.4 FL (83-99); PLATELET COUNT 381 K/uL (156-360); RBC DIS.WIDTH-CV 13.6 % (11.8-14.6); RBC DIS.WIDTH-SD 45.1 % (39-53); RED BLOOD COUNT 4.07 M/uL (3.80-5.20); WHITE BLOOD COUNT 8.8 K/uL (4.1-10.2)
[2017-05-14 23:42] LABS: ALBUMIN 4.5 g/dL (3.2-4.8); CHLORIDE 101 mEq/L (99-109); POTASSIUM 3.5 mEq/L (3.7-5.4); SODIUM 137 mEq/L (136-147)
[2017-05-14 23:45] LABS: GLUCOSE 195 mg/dL (70-99); TOTAL PROTEIN 8.4 g/dL (6.4-8.3)
[2017-05-14 23:48] LABS: ALKALINE PHOSPHATASE 79 IU/L (3-129); CREATININE 0.8 mg/dL (0.6-1.3); GFR ESTIMATE (CALCULATED) > 59 mL/min/
[2017-05-14 23:49] LABS: UREA NITROGEN (BUN) 9 mg/dL (9-23)
[2017-05-14 23:50] LABS: AST (GOT) 68 IU/L (2-34)
[2017-05-14 23:51] LABS: ALT (GPT) 30 IU/L (3-49)
[2017-05-14 23:52] LABS: LIPASE 17 U/L (1.0-51.0)
[2017-05-14 23:57] LABS: QUANTITATIVE HCG < 4.0 MIU/ML
[2017-05-15 00:24] LABS: APPEARANCE CLOUDY ((CLEAR)); BILIRUBIN NEGATIVE; BLOOD NEGATIVE; COLOR AMBER ((YELLOW)); GLUCOSE (STRIP) NEGATIVE; KETONES 5; LEUKOCYTES MODERATE; NITRITE NEGATIVE; PROTEIN (STRIP) 30; SPECIFIC GRAVITY 1.025 (1.000-1.030)
[2017-05-15 00:42] LABS: BACTERIA 1+ /HPF; EPITHELIAL CELLS 2+ /HPF; HYALINE CASTS RARE /LPF; MUCUS 3+ /LPF; RED BLOOD CELLS 0-5 /HPF (0-5); UCUL ADDED? YES; URIC ACID CRYSTALS 1+ /HPF
[2017-05-15 00:43] LABS: CALCIUM OXALATE CRYSTALS RARE /HPF
[2017-05-15 06:00] VITALS: BP 193/95
[2017-05-15 07:33] LABS: BENZODIAZEPINES, URINE SCREEN Negative (200 ng/mL)
[2017-05-15 08:00] VITALS: BP 174/85
[2017-05-15 12:00] VITALS: BP 137/75
[2017-05-15 17:09] VITALS: BP 134/68
[2017-05-15 19:00] VITALS: BP 136/84
[2017-05-15 21:45] VITALS: BP 100/60
[2017-05-16 08:56] VITALS: BP 113/71
[2017-05-16 11:37] VITALS: BP 142/87
[2017-05-16 16:21] VITALS: BP 116/78
[2017-05-16 21:04] VITALS: BP 137/74
[2017-05-17 01:18] VITALS: BP 99/59
[2017-05-17 06:37] LABS: CHLORIDE 104 MEQ/L (99-109); CREATININE 0.7 MG/DL (0.6-1.3); GFR ESTIMATE (CALCULATED) > 59 mL/min/; GLUCOSE 150 mg/dL (70-99); SODIUM 135 MEQ/L (136-147); UREA NITROGEN (BUN) 3 mg/dL (9-23)
[2017-05-17 06:59] LABS: POTASSIUM 4.4 MEQ/L (3.7-5.4)
[2017-05-17 07:54] VITALS: BP 97/61
[2017-05-17] MEDS ORDERED: REGLAN10 MG PO (16:47)
== END 2017-05-17 17:42 | disposition home or self-care (01) | DRG 392 ==
LOC: EME 23:01 → 4SOUTH 05-15 03:17 → EDOF 05-15 03:17 → ENRESERV 05-15 03:39 → 4EAST 05-15 06:02 → ENRESERV 05-15 20:54 → 4SOUTH 05-15 21:39
PROVIDERS: Family Medicine; Hospitalist; Physician Assistant Medical
DX: R10.9 Unspecified abdominal pain (principal); R11.2 Nausea with vomiting, unspecified; F60.3 Borderline personality disorder; K59.09 Other constipation; E03.9 Hypothyroidism, unspecified; M79.7 Fibromyalgia; G89.29 Other chronic pain; K21.9 Gastro-esophageal reflux disease without esophagitis; K58.9 Irritable bowel syndrome, unspecified; E87.6 Hypokalemia; E66.9 Obesity, unspecified; Z98.890 Other specified postprocedural states; Z88.1 Allergy status to other antibiotic agents; Z88.8 Allergy status to other drugs, medicaments and biological substances; Z68.29 Body mass index [BMI] 29.0-29.9, adult; Z79.84 Long term (current) use of oral hypoglycemic drugs; Z87.891 Personal history of nicotine dependence; Z90.710 Acquired absence of both cervix and uterus
CPT/HCPCS: 74018; 74176; 80048; 80053; 80306 90; 81003; 82948; 83605; 83690; 84702; 85027; 87086; 99281; 99285; C9113; G0378; G0480; J1200; J1630; J1644; J1885; J2060; J2405; J2765; J3010; J3480; J7030

== ENCOUNTER 2017-07-22 18:41 | Emergency (ER) | payer OTHER ==
[~2017-07-22] VITALS: Ht 167.6 cm; Wt 81.6 kg
[2017-07-22] MEDS ORDERED: REGLAN10 MG PO (20:51)
[2017-07-22 21:14] VITALS: BP 148/92
== END 2017-07-22 21:16 | disposition home or self-care (01) ==
LOC: EME 18:41
DX: G43.909 Migraine, unspecified, not intractable, without status migrainosus (principal); E11.9 Type 2 diabetes mellitus without complications; J44.9 Chronic obstructive pulmonary disease, unspecified; K21.9 Gastro-esophageal reflux disease without esophagitis; K58.9 Irritable bowel syndrome, unspecified; E03.9 Hypothyroidism, unspecified; Z79.84 Long term (current) use of oral hypoglycemic drugs; Z87.891 Personal history of nicotine dependence; Z86.69 Personal history of other diseases of the nervous system and sense organs; Z98.890 Other specified postprocedural states; Z96.0 Presence of urogenital implants; Z90.721 Acquired absence of ovaries, unilateral; Z90.49 Acquired absence of other specified parts of digestive tract; Z90.711 Acquired absence of uterus with remaining cervical stump; Z88.6 Allergy status to analgesic agent; Z88.1 Allergy status to other antibiotic agents; Z88.8 Allergy status to other drugs, medicaments and biological substances
CPT/HCPCS: 99281; 99284; J1885